=== PATIENT | male | born 1950 | race Two or more races ===

== ENCOUNTER 2019-10-06 19:52 | Inpatient (IN) | payer MEDICARE ==
[~2019-10-06] VITALS: Ht 165.1 cm; Wt 50.8 kg
[2019-10-06] MEDS ORDERED: BLOOD SUGAR DIAGNOSTIC 1 EACH STRIP IN ONE (22:30)
[2019-10-06] MEDS ORDERED: MAGNESIUM HYDROXIDE 30 ML UDC PO PRN (22:30)
[2019-10-06] MEDS ORDERED: MAG HYDROX/AL HYDROX/SIMETH 30 ML UDC PO PRN (22:30)
[2019-10-07] MEDS ORDERED: LORAZEPAM 0.5 MG TABLET PO PRN
[2019-10-07] MEDS ORDERED: FLUT9.9S16 NS (02:29)
[2019-10-07] MEDS ORDERED: HALO5TAB PO (02:29)
[2019-10-07] MEDS ORDERED: DIPH-530 PO (02:29)
[2019-10-07] MEDS ORDERED: OLAN10TA3 PO (02:29)
--- NOTE | 2019-10-07 05:42 | NUR ---
DIRECT ADMIT THIS 69 YEARS OLD MALE ACCOMPANIED BY AMBULANCE VIA GURNEY, PATIENT GOT ADMITTED FOR GRAVELY DISABLE, UNABLE TO CARE FOR HIM SELF UPON FACE TO FACE ASSESMENT PATIENT DENIES ANY SI/HI AT THIS TIME, HOSPITAL HAND BOOK HAND OVER TO THE PATIENT WITH ADVISEMENT, PATIENT SIGN THE CONSENT PAPER PAPER DENIES ANY PAIN OR DISCOMFORT DR. NICE NOTIFY REGARDING PATIENT ADMISSION. SKIN IS INTACT PATENT NO OPEN WOUND NOTED. PATIENT IS AMBULATORY WITH STEADY GAIT CALL LIGHT WITHIN EASY REACH WILL CONTINUES TO MONITOR PATIENT FOR SAFETY AND FALL AND ENDORSE TO THE ON COMING NURSE TO CONTINUES OF CARE.
[2019-10-07 08:00] VITALS: BP 152/95
[2019-10-07 08:33] LABS: ALBUMIN 2.7 g/dL (3.4-5.0); BILIRUBIN,TOTAL 0.3 mg/dL (0.2-1.0); CALCIUM, SERUM 9.1 mg/dL (8.5-10.1); CREATININE 0.8 mg/dL (0.6-1.3); POTASSIUM 4.4 mmol/L (3.5-5.1); TOTAL PROTEIN, SERUM 7.1 g/dL (6.4-8.2)
[2019-10-07 08:41] LABS: CHOLESTEROL 123 mg/dL (<200); HDL CHOLESTEROL 31 mg/dL (40-60); LDL 83 mg/dL (0-99); TRIGLYCERIDES 101 mg/dL (30-150)
--- NOTE | 2019-10-07 11:15 | NUR ---
Initial Discharge Plan: Pt currently resides at his home located at [address] [place], [place] [id number]; ([phone]). Per pt, he would like to return to his home. SW will work with the pt and the MD regarding appropriate discharge planning. SW will form a safe and proper plan.
[2019-10-07 16:00] VITALS: BP 100/60
[2019-10-07] MEDS: LORAZEPAM 0.5 MG TABLET PO PRN (17:10)
[2019-10-07] MEDS: DIVALPROEX SODIUM 250 MG TABLET.DR PO SCH (19:59)
[2019-10-07] MEDS: HALOPERIDOL 5 MG TABLET PO SCH (19:59)
[2019-10-07] MEDS: BENZTROPINE MESYLATE (1 MG) 1 MG TABLET PO SCH (19:59)
[2019-10-07 20:52] VITALS: BP 157/93
[2019-10-07 20:54] VITALS: BP 152/75
[2019-10-08 08:00] VITALS: BP 155/95
[2019-10-08] MEDS: HALOPERIDOL 5 MG TABLET PO SCH ×3 (08:00→16:35)
[2019-10-08] MEDS: DIVALPROEX SODIUM 250 MG TABLET.DR PO SCH ×3 (08:00→16:35)
[2019-10-08] MEDS: BENZTROPINE MESYLATE (1 MG) 1 MG TABLET PO SCH ×3 (08:00→16:35)
[2019-10-08] MEDS: LORAZEPAM 0.5 MG TABLET PO PRN (08:00)
--- NOTE | 2019-10-08 08:23 | NUR ---
[facility] [employer] Contact: SW called [facility] [employer], Carly Watts ([phone]), and left a voicemail stating that she is aware that contact was attempted so the SW provided her with her direct number to discuss this pt.
[2019-10-08] MEDS: FLUTICASONE PROPIONATE 16 GM BOTTLE NS SCH (09:12)
[2019-10-08 10:51] LABS: APPEARANCE,URINE CLEAR (CLEAR); BILIRUBIN,URINE NEGATIVE (NEGATIVE); BLOOD, URINE NEGATIVE Ery/uL (NEGATIVE); KETONES,URINE NEGATIVE (NEGATIVE); LEUKOCYTE ESTERASE ,URINE NEGATIVE (NEGATIVE); NITRITE, URINE NEGATIVE (NEGATIVE); PH,URINE 7.5 (5.0-8.0); PROTEIN,URINE NEGATIVE (NEGATIVE); UGLUCOSE NEGATIVE (NEGATIVE); UROBILINOGEN,URINE 0.2 EU/dL (0.2)
[2019-10-08 10:53] LABS: COLOR,URINE STRAW (YELLOW)
[2019-10-08] MEDS: ACETAMINOPHEN 325 MG TABLET PO PRN (13:09)
--- NOTE | 2019-10-08 15:02 | NUR ---
INDIVIDUAL INTERVENTION: SW attempted to meet with pt to discuss his symptoms of aggression. Pt is easily agitated and stated he did not want to talk to SW and asked for SW to leave his room. SW attempted to deescalate pt, however, pt was not open for individual counseling.
[2019-10-08 16:00] VITALS: BP 149/74
[2019-10-08 20:41] VITALS: BP 161/62
[2019-10-09 08:00] VITALS: BP 137/89
[2019-10-09] MEDS: BENZTROPINE MESYLATE (1 MG) 1 MG TABLET PO SCH ×3 (08:24→16:27)
[2019-10-09] MEDS: HALOPERIDOL 5 MG TABLET PO SCH ×3 (08:24→16:27)
[2019-10-09] MEDS: DIVALPROEX SODIUM 250 MG TABLET.DR PO SCH ×3 (08:24→16:27)
[2019-10-09] MEDS: FLUTICASONE PROPIONATE 16 GM BOTTLE NS SCH (08:30)
--- NOTE | 2019-10-09 09:00 | NUR ---
RN NOTE- PT LOUD INTRUSIVE NEEDY, DELUSIONAL, CONTINUED TALK OF COMBAT EXOERIENCES AND WARTIME EXPLOITS, NEEDS CONSTANT LIMITS AND REDIRECTION, DENIES ALL, MED COMPLIANT
[2019-10-09] MEDS: ACETAMINOPHEN 325 MG TABLET PO PRN ×2 (10:18→19:56)
--- NOTE | 2019-10-09 11:45 | NUR ---
[facility] [employer] Contact: LISA called [facility] [employer], Carly Watts ([phone]), and informed her about the pts progress and the pts current discharge plan. SW also notified her that the pt is going to be having a probable cause hearing today and informed her that she will with the results of the hearing.
[2019-10-09] MEDS: LORAZEPAM 0.5 MG TABLET PO PRN (12:37)
--- NOTE | 2019-10-09 12:38 | NUR ---
RN NOTE- PT W INCREASING AGITATION AND YELLING. ATIVAN 1 MG GIVEN
[2019-10-09 16:21] VITALS: BP 123/65
--- NOTE | 2019-10-09 19:56 | NUR ---
GPS-RN NOTE: C/O HEADACHE PATIENT C/O HEADACHE ON A PAIN SCALE OF 3/10. ADMINISTERED TYLENOL 650MG PO ORDERED. WILL CONTINUE TO MONITOR.
[2019-10-09 20:24] VITALS: BP 154/75
[2019-10-09] MEDS: TEMAZEPAM 7.5 MG CAPSULE PO PRN (21:35)
--- NOTE | 2019-10-09 21:35 | NUR ---
GPS-RN NOTE: INSOMNIA PATIENT C/O INABILITY TO SLEEP. ADMINISTERED RESTORIL 7.5MG PO ORDERED. WILL CONTINUE TO MONITOR.
[2019-10-10 08:00] VITALS: BP 145/79
[2019-10-10] MEDS: BENZTROPINE MESYLATE (1 MG) 1 MG TABLET PO SCH ×3 (08:18→17:51)
[2019-10-10] MEDS: DIVALPROEX SODIUM 250 MG TABLET.DR PO SCH ×3 (08:18→17:51)
[2019-10-10] MEDS: HALOPERIDOL 5 MG TABLET PO SCH ×3 (08:18→17:51)
[2019-10-10] MEDS: FLUTICASONE PROPIONATE 16 GM BOTTLE NS SCH (08:19)
--- NOTE | 2019-10-10 09:00 | NUR ---
RN NOTE- NEEDY, DELUSIONAL, NEEDS CONSTANT LIMITS AND REDIRECTION, DENIES ALL, MED COMPLIANT PO INTAKE GOOD SLEPT WELL HYPERVERBAL
[2019-10-10] MEDS: ACETAMINOPHEN 325 MG TABLET PO PRN (10:19)
[2019-10-10] MEDS: LORAZEPAM 0.5 MG TABLET PO PRN (10:19)
--- NOTE | 2019-10-10 10:21 | NUR ---
RN NOTE- PT W ANXIETY AND BACK PAIN. TYLENOL 650 MG GIVEN AND ATIVAN 1 MG GIVEN
[2019-10-10 16:00] VITALS: BP 133/69
[2019-10-10 20:00] VITALS: BP 112/59
[2019-10-11] MEDS: ACETAMINOPHEN 325 MG TABLET PO PRN ×2 (01:30→10:34)
--- NOTE | 2019-10-11 01:30 | NUR ---
GPS-RN NOTE: C/O HEADACHE PATIENT C/O HEADACHE ON A PAIN SCALE OF 3/10. PT REQUESTED FOR TYLENOL. ADMINISTERED TYLENOL 650MG PO ORDERED. WILL CONTINUE TO MONITOR.
[2019-10-11 08:00] VITALS: BP 135/68
[2019-10-11] MEDS: DIVALPROEX SODIUM 250 MG TABLET.DR PO SCH ×3 (08:51→17:26)
[2019-10-11] MEDS: BENZTROPINE MESYLATE (1 MG) 1 MG TABLET PO SCH ×3 (08:51→17:26)
[2019-10-11] MEDS: HALOPERIDOL 5 MG TABLET PO SCH ×3 (08:51→17:26)
[2019-10-11] MEDS: FLUTICASONE PROPIONATE 16 GM BOTTLE NS SCH (08:57)
[2019-10-11] MEDS: LORAZEPAM 0.5 MG TABLET PO PRN (10:34)
--- NOTE | 2019-10-11 10:34 | NUR ---
RN NOTE:PATIENT C/O ANXIETY MEDICATED WITH ATIVAN 1MG PO WILL CONTINUE TO MONITOR .
--- NOTE | 2019-10-11 10:34 | NUR ---
RN NOTE :PATIENT C/O HEADACHE 10/27 MEDICATED WITH TYLENOL 650MG WILL CONTINUE TO MONITOR .
[2019-10-11 16:00] VITALS: BP 148/76
[2019-10-11 20:37] VITALS: BP 103/72
[2019-10-11] MEDS: TEMAZEPAM 7.5 MG CAPSULE PO PRN (21:06)
[2019-10-12 08:00] VITALS: BP 148/85
[2019-10-12] MEDS: HALOPERIDOL 5 MG TABLET PO SCH ×3 (08:26→17:29)
[2019-10-12] MEDS: DIVALPROEX SODIUM 250 MG TABLET.DR PO SCH ×3 (08:26→17:29)
[2019-10-12] MEDS: BENZTROPINE MESYLATE (1 MG) 1 MG TABLET PO SCH ×3 (08:27→17:29)
[2019-10-12] MEDS: LORAZEPAM 0.5 MG TABLET PO PRN (08:27)
--- NOTE | 2019-10-12 08:27 | NUR ---
RN NOTE:PATIENT C/O ANXIETY MEDICATED WITH ATIVAN 1MG PO WILL CONTINUE TO MONITOR .
[2019-10-12] MEDS: FLUTICASONE PROPIONATE 16 GM BOTTLE NS SCH (08:30)
[2019-10-12 16:00] VITALS: BP 118/91
[2019-10-12 20:45] VITALS: BP 159/75
[2019-10-12] MEDS: TEMAZEPAM 7.5 MG CAPSULE PO PRN (21:27)
--- NOTE | 2019-10-12 21:28 | NUR ---
GPS-RN NOTE: INSOMNIA PATIENT C/O INABILITY TO SLEEP. ADMINISTERED RESTORIL 7.5MG PO ORDERED. WILL CONTINUE TO MONITOR.
[2019-10-12] MEDS: DIVALPROEX SODIUM 500 MG TABLET.DR PO SCH (22:17)
[2019-10-13] MEDS: ACETAMINOPHEN 325 MG TABLET PO PRN ×2 (05:13→15:18)
--- NOTE | 2019-10-13 05:14 | NUR ---
GPS-RN NOTE: C/O HEADACHE PATIENT C/O HEADACHE ON A PAIN SCALE OF 3/10. PT REQUESTED FOR TYLENOL. ADMINISTERED TYLENOL 650MG PO ORDERED. WILL CONTINUE TO MONITOR.
[2019-10-13 08:00] VITALS: BP_SYST 124; BP_SYST 155; BP_DIAS 77; BP_DIAS 89
[2019-10-13] MEDS: BENZTROPINE MESYLATE (1 MG) 1 MG TABLET PO SCH ×3 (08:19→16:17)
[2019-10-13] MEDS: HALOPERIDOL 5 MG TABLET PO SCH ×3 (08:19→16:17)
[2019-10-13] MEDS: FLUTICASONE PROPIONATE 16 GM BOTTLE NS SCH (08:20)
[2019-10-13] MEDS: DIVALPROEX SODIUM 500 MG TABLET.DR PO SCH ×3 (08:33→21:40)
[2019-10-13] MEDS: LORAZEPAM 0.5 MG TABLET PO PRN (15:18)
--- NOTE | 2019-10-13 15:18 | NUR ---
RN NOTE: PAIN AND AGITATION PT C/O 08/27 BACK PAIN AND INCREASING AGITATION. MEDICATED WITH TYLENOL 650 MG PRN AND ATIVAN 1 MG PO PRN
[2019-10-13 16:00] VITALS: BP 125/91
--- NOTE | 2019-10-13 16:14 | NUR ---
Individual Intervention: SW met with the pt at bedside but the pt was sleeping and stated that he did not want to speak to anyone and that he is aware that he will be discharged home soon.
[2019-10-13 20:15] VITALS: BP 131/67
[2019-10-14 08:00] VITALS: BP 141/75
[2019-10-14] MEDS: ACETAMINOPHEN 325 MG TABLET PO PRN ×2 (08:13→17:34)
[2019-10-14] MEDS: FLUTICASONE PROPIONATE 16 GM BOTTLE NS SCH (08:51)
[2019-10-14] MEDS: BENZTROPINE MESYLATE (1 MG) 1 MG TABLET PO SCH ×3 (08:52→17:34)
[2019-10-14] MEDS: HALOPERIDOL 5 MG TABLET PO SCH ×3 (08:52→17:34)
[2019-10-14] MEDS: DIVALPROEX SODIUM 500 MG TABLET.DR PO SCH ×3 (08:52→21:25)
[2019-10-14 16:00] VITALS: BP 157/87
--- NOTE | 2019-10-14 19:00 | NUR ---
MED IN AM FOR HEADACHE AND THIS EVENING FOR BACKACHE WITH TYLENOL.
[2019-10-14 20:07] VITALS: BP 154/90
[2019-10-14] MEDS: TEMAZEPAM 7.5 MG CAPSULE PO PRN (21:24)
[2019-10-15 08:00] VITALS: BP 150/87
[2019-10-15] MEDS: DIVALPROEX SODIUM 500 MG TABLET.DR PO SCH ×3 (08:39→21:07)
[2019-10-15] MEDS: HALOPERIDOL 5 MG TABLET PO SCH ×3 (08:39→16:10)
[2019-10-15] MEDS: BENZTROPINE MESYLATE (1 MG) 1 MG TABLET PO SCH ×3 (08:39→16:10)
[2019-10-15] MEDS: FLUTICASONE PROPIONATE 16 GM BOTTLE NS SCH (08:40)
--- NOTE | 2019-10-15 15:03 | NUR ---
Individual Counseling: This SW met with the pt. at [facility] to facilitate counseling regarding positive coping mechanisms. The patient was asleep and did not respond to verbal cues. Pt. will be invited to attend future therapeutic milieu.
[2019-10-15 16:00] VITALS: BP 134/82
[2019-10-15 20:44] VITALS: BP 120/55
[2019-10-15] MEDS: ACETAMINOPHEN 325 MG TABLET PO PRN (20:53)
--- NOTE | 2019-10-15 20:53 | NUR ---
GPS-RN NOTE: LOWER BACK PAIN PATIENT C/O LOWER BACK PAIN. PT REQUESTED FOR TYLENOL. ADMINISTERED TYLENOL 650MG PO ORDERED. WILL CONTINUE TO MONITOR.
[2019-10-15] MEDS: TEMAZEPAM 7.5 MG CAPSULE PO PRN (21:54)
--- NOTE | 2019-10-15 21:54 | NUR ---
GPS-RN NOTE: INSOMNIA PATIENT C/O INABILITY TO SLEEP. ADMINISTERED RESTORIL 7.5MG PO ORDERED. WILL CONTINUE TO MONITOR.
[2019-10-16 08:23] VITALS: BP 146/86
[2019-10-16] MEDS: FLUTICASONE PROPIONATE 16 GM BOTTLE NS SCH (08:25)
[2019-10-16] MEDS: BENZTROPINE MESYLATE (1 MG) 1 MG TABLET PO SCH ×2 (08:25→11:52)
[2019-10-16] MEDS: HALOPERIDOL 5 MG TABLET PO SCH ×2 (08:25→11:53)
[2019-10-16] MEDS: DIVALPROEX SODIUM 500 MG TABLET.DR PO SCH ×2 (08:25→11:53)
--- NOTE | 2019-10-16 13:15 | NUR ---
GPS/RN PT DISCHARGED HOME VIA TAXI WITH VOUCHER PROVIDED.PRESCRIPTIONS, EXIT CARE INSTRUCTIONS GIVEN AND UNDERSTOOD. VSS, SKIN CLEAR, AMBULATORY. VALUABLES RETURNED. ACCOMPANIED TO THE TAXI BY LILY ESCALERA.
--- NOTE | 2019-10-16 13:58 | NUR ---
Discharge Note: Pt was discharged to his home located at [address] [facility], [address] [address]; ([phone]). Pt was discharged via taxi at 1pm. Upon discharge, the pt appeared to be in a euthymic mood and presented with a calm affect. Pt appeared to be alert and oriented x4 (time, place, self and situation). Pt denied both suicidal and homicidal ideation as well as auditory and visual hallucinations. Pt appears to be ambulatory with a steady gait. Pt appears to be groomed and appropriately dressed. Pt will continue to be under the care of psychiatrist, [facility], located at [address] [place] [address] [address], [place] [address]; . Pt will follow up with [facility]: Dr. Ce Daniels MD located at [address] [place] [id number]; .
== END 2019-10-16 13:15 | disposition home or self-care (01) | DRG 885 ==
LOC: GPS 20:38
PROVIDERS: ADMIT Psychiatry & Neurology Psychiatry
DX: F25.9 Schizoaffective disorder, unspecified (principal); E44.0 Moderate protein-calorie malnutrition; Z68.1 Body mass index [BMI] 19.9 or less, adult; F29 Unspecified psychosis not due to a substance or known physiological condition
CPT/HCPCS: 36415; 80053-TC; 80061-TC; 80164-TC; 81000-TC; 87086-TC